=== PATIENT | male | born 1965 | race Two or more races ===

== ENCOUNTER 2016-05-27 10:04 | Emergency (ER) | payer MEDICAID ==
[2016-05-27] MEDS ORDERED: IOPAMIDOL 300 (61%) 150 ML VIAL IV ONE (10:05)
[2016-05-27 10:49] LABS: URINE BILIRUBIN NEGATIVE (NEGATIVE); URINE BLOOD NEGATIVE (NEGATIVE); URINE GLUCOSE (UA) NEGATIVE (NEGATIVE); URINE LEUKOCYTE ESTERASE NEGATIVE (NEGATIVE); URINE NITRITE NEGATIVE (NEGATIVE); URINE PROTEIN NEGATIVE (NEGATIVE); URINE UROBILINOGEN NORMAL (0-1 mg/dl)
[2016-05-27 10:51] LABS: URINE APPEARANCE CLEAR; URINE COLOR YELLOW
[2016-05-27 11:20] LABS: ABSOLUTE NEUTROPHIL COUNT 3.3 K/mm3 (1.8-7.7); BASO % 0.4 % (0.2-1.0); EOS # 0.1 (0.0-0.5); HEMATOCRIT 45.3 % (32.0-52.0); HEMOGLOBIN 16.2 gm/l (14.0-18.0); IMM NEUT% 0.6 % (0-1); LYMPH # 1.2 (1.0-4.8); LYMPH % 23.3 % (15-45); MEAN CELL VOLUME 86.5 fl (80.0-94.0); MEAN CORPUSCULAR HEMOGLOBIN 30.9 pg (27.0-31.0); MEAN CORPUSCULAR HGB CONC 35.8 g/dl (33.0-37.0); MEAN PLATELET VOLUME 10.2 fl (7.4-10.4); MONO # 0.4 (0.0-0.8); MONO % 8.6 % (4-12); NEUT % 65.1 % (43-75); PLATELET COUNT 122 K/mm3 (130-400); RED CELL DISTRIBUTION WIDTH 11.9 % (11.5-14.5)
[2016-05-27 11:32] LABS: CALCIUM 9.5 mg/dL (8.6-10.3)
--- NOTE | 2016-05-27 12:09 | CT ---
Exam Type: ABD/PELVIS W/ CON Date and Time: 05/27/2016 11:37 AM Clinical information: Left lower quadrant and left flank pain. Comparison: None Procedure: Imaging device: [employer] Aquilion [address] scanner 1 mm axial images were obtained through the abdomen and pelvis. Stacked reconstructed 3, 4 and 5 mm images were photographed in the axial coronal and sagittal planes. No oral contrast was utilized for this examination. 125 ml of Isovue-300 was injected intravenously. Exam: with intravenous contrast. FINDINGS: Lung bases:The visualized lung bases appear to be appropriate with no mass, effusion or consolidation visualized. Liver: the liver is homogeneous with no discrete abnormality visualized. No definite findings of biliary dilatation are observed. Spleen: The spleen is enlarged with a cranial to caudal dimension of 18.4 cm. Gallbladder: Normal without enlargement or evidence of adjacent inflammatory changes. Pancreas: Normal without enlargement or evidence of adjacent inflammatory changes. Adrenal glands: Normal without enlargement or evidence of adjacent inflammatory changes. Abdominal aorta: The aorta is of normal caliber and appears to be without significant atherosclerotic disease. Kidneys: The kidneys appear to be symmetric in size with no perinephric inflammatory changes are identified. No current findings of hydronephrosis are seen. Bowel structures: The visualized bowel is of normal caliber without evidence of dilatation or obstruction. No free fluid or mesenteric inflammatory changes are identified. Appendix: The appendix is well-visualized and appears to be of normal caliber. No periappendiceal inflammatory changes or CT findings of appendicitis are currently observed. Bladder: The bladder is of normal contour. No wall thickening or significant distention is observed. Hernia: Small left inguinal hernia is suggested. Adenopathy: No significant enlarged adenopathy is visualized. Osseous structures: No discrete osseous abnormalities are identified. Pelvic structures: No discrete pelvic abnormalities are visualized in this examination. IMPRESSION: 1. Splenomegaly. 2. No suggested renal or ureteral calculus or evidence of hydronephrosis is visualized. 3. A normal appearance of the appendix without CT evidence of appendicitis. 4. A small fat filled left inguinal hernia.
== END 2016-05-27 12:57 | disposition home or self-care (01) ==
LOC: ED 10:04
DX: M54.5 Low back pain (principal)
CPT/HCPCS: 85025; 80048; 81003; 74177; 99284 ×2; Q9967